=== PATIENT | female | born 1995 | race African-American/Black ===

== ENCOUNTER 2019-08-13 18:13 | Emergency (ER) | payer SELFPAY ==
[~2019-08-13] VITALS: Ht 160 cm; Wt 79.8 kg
--- NOTE | 2019-08-13 18:15 | NUR ---
PT CAME INTO THE ED C/O VAGINAL PAIN X 2 DAYS, +SPOTTING, +YELLOWISH DISCHARGE. PT AAOX4, VSS, BREATHING EVEN AND UNLABORED ON ROOM AIR. PT CONNECTED TO THE MONITOR
[2019-08-13] MEDS ORDERED: LIDOCAINE HCL/MPF 1% 30 ML VIAL IJ ONE (18:42)
[2019-08-13] MEDS: LIDOCAINE HCL/PF 1% 30 ML VIAL TP ONE ×2 (18:46→19:02)
--- NOTE | 2019-08-13 18:56 | NUR ---
Patient discharged to home in stable condition. Written and verbal after care instructions given. Patient verbalizes understanding of instruction.
[2019-08-13 19:10] VITALS: BP 124/78
--- NOTE | 2019-08-13 19:11 | NUR ---
Patient discharged to home in stable condition. Written and verbal after care instructions given. Patient verbalizes understanding of instruction.
== END 2019-08-13 19:14 | disposition home or self-care (01) ==
LOC: ER 18:17
DX: B00.9 Herpesviral infection, unspecified (principal); Z98.890 Other specified postprocedural states
CPT/HCPCS: 99283; J3490 ×2